=== PATIENT | female | born 1945 | race Caucasian/White ===

== ENCOUNTER 2018-07-29 10:41 | Day surgery (SDC) | payer MEDICARE, OTHER, SELFPAY ==
--- NOTE | 2018-07-28 11:55 | W.PIPPEYE ---
History of Present Illness Chief Complaint: Progressive decreased vision, right eye Narrative: The patient is a 73-year-old female with history of corneal epithelial dystrophy who presented with complaints of progressive decreased vision in both eyes at distance and intermediate. She has a history of myopia and takes her glasses off to read, which she has done so for many years. On examination she was noted to have moderate bilateral nuclear cataracts with early posterior subcapsular cataracts. She was more symptomatic in the right eye. She desired cataract surgery and attempt to improve and maximize her vision. In addition, she desires to correct the right eye for distance. She understands that she will likely be significantly anisometropic after cataract surgery. NOTE: The Chief Complaint, HPI, Past Medical History, Past Surgical History, Family History, Social History, Medications, and complete Ophthalmic Exam with detailed Assessment and Plan have already been documented in the patient's outpatient ophthalmic record and are not covered again in detail here. Meds Home Medications Medication Instructions Recorded Confirmed Type atenolol 25 mg tablet 12.5 mg PO BID 06/03/18 07/24/18 History clobetasol 0.05 % topical ointment 1 applic TP DAILY 42 Days #15 gm 06/03/18 07/24/18 Rx estradiol 10 mcg vaginal tablet 10 mcg VG DAILY 14 Days #25 tab 06/03/18 07/24/18 Rx calcium carbonate [Calcium 500] 500 mg PO DAILY 07/24/18 07/24/18 History cholecalciferol (vitamin D3) 1,000 unit PO DAILY 07/24/18 07/24/18 History [Vitamin D3] magnesium oxide 500 mg PO DAILY 07/24/18 07/24/18 History metronidazole 1 applic TOPICAL BID 07/24/18 07/24/18 History multivitamin 1 tab PO DAILY 07/24/18 07/24/18 History triamcinolone acetonide 1 applic TOPICAL BID 07/24/18 07/24/18 History Allergies Allergy/AdvReac Type Severity Reaction Status Date / Time dexamethasone [From Maxitrol] Allergy Severe Swelling/Ed Verified 07/26/18 12:13 odilon neomycin [From Maxitrol] Allergy Severe Swelling/Ed Verified 07/26/18 12:13 odilon polymyxin B [From Maxitrol] Allergy Severe Swelling/Ed Verified 07/26/18 12:13 odilon cefazolin [From Kefzol] AdvReac Intermediate Rash Verified 06/25/18 13:58 ciprofloxacin AdvReac Intermediate Tingling Verified 06/25/18 13:58 in hands and feet Penicillins AdvReac Mild Hives Verified 06/25/18 13:58 Exam OCULAR EXAM:: Visual acuity at distance: Corrected visual acuity 20/25 right eye, 20/25 left eye. Pupils: Pupils equal, round, and reactive without afferent pupillary defect IOP: 15 OD 16 OS Extraocular Motility: Normal Pertinent Slit Lamp Findings: Significant for map dot fingerprint epithelial changes. The epithelium is mildly irregular. 2+ nuclear cataracts are present OU with 1+ posterior subcapsular cataract. Dilated Funduscopic Examination: Disc cupping is 0.1 OU, slightly tilted with good color. The optic nerves have good perfusion and normal color. The retinal vasculature is normal without significant tortuosity or abnormality. The maculas are normal in appearance with normal contour and foveal reflex appropriate for age. The peripheral retina and vitreous are normal. BRIGHTNESS ACUITY TESTING (BAT):: Off right eye 20/25 Low: Right eye 20/30 Medium: Right eye 20/40 High: 20/40 Assessment and Plan (1) Nuclear sclerotic cataract of right eye: Current visit: No Status: Acute Assessment: Visually significant cataract, right eye. Plan: Cataract extraction with intraocular lens implantation, right eye (2) Posterior subcapsular age-related cataract, right eye: Current visit: No Status: Acute Assessment: Visually significant cataract, right eye. Plan: Cataract extraction with intraocular lens implantation, right eye (3) Myopia of right eye: Current visit: No Status: Chronic Assessment: Myopia, right eye Plan: Preoperative discussion was undertaken with the patient. She desires cataract surgery with intraocular lens implantation with a goal of correcting her myopia in the right eye. She understands that she will remain myopic in the left eye and she will be anisometropic. At some point in the future when cataract surgery was performed on the left eye the anisometropia can be corrected, or she may desire to remain mildly to moderately myopic in the left eye for monovision. Note: NOTE:: The details of the planned surgery, including the risks, indications,limitations,expectations,outcome and possible complications were explained to the patient. The patient understands the complications including, but not limited to: infection, hemorrhage, posterior dislocation of the lens or nuclear fragments which may require the intervention of a vitreoretinal surgeon, possible loss of the eye, or from anesthetic complications. The patient has been made aware of the option of not having surgery, that vision following surgery may not be equal to that prior to surgery, and that the planned surgery may not achieve the intended results. Following this discussion, which the patient appeared to understand, the patient wishes to proceed with cataract surgery with lens implantation of the affected eye to improve and maximize vision.
[2018-07-29 10:53] VITALS: BP 144/77; PULSE 61; RESP 16; TEMP 35.5; O2SAT 97
[2018-07-29] MEDS: Lidocaine 2% Jelly 6 ML SYR (12:29)
[2018-07-29] MEDS: Balanced Salt Soln.-PLUS 500 ML BAG (12:34)
[2018-07-29] MEDS: Lidocaine 1% Pres-Free 5 ML VIAL (12:34)
[2018-07-29] MEDS: Povidone-Iodine Ophth 30 ML BTL (12:54)
--- NOTE | 2018-07-29 12:58 | W.PM.DSUDISC ---
Discharge Plan Discharge Details Reason For Visit: CATARACT OD Attending Provider: Devan Hernandez Primary Care Provider: Nilsa Romero Home Meds and New Rx's Prescriptions: No Action atenolol 25 mg tablet 12.5 mg PO BID RF: 0 clobetasol 0.05 % ointment 1 applic TP DAILY 42 Days Qty: 15 RF: 2 estradiol [Vagifem] 10 mcg tablet 10 mcg VG DAILY 14 Days Qty: 25 RF: 4 multivitamin Tablet 1 tab PO DAILY RF: 0 metronidazole 0.75 % Cream 1 applic TOPICAL BID RF: 0 magnesium oxide 500 mg Capsule 500 mg PO DAILY RF: 0 triamcinolone acetonide 0.1 % Cream 1 applic TOPICAL BID RF: 0 calcium carbonate [Calcium 500] 500 mg calcium (1,250 mg) Tablet 500 mg PO DAILY RF: 0 cholecalciferol (vitamin D3) [Vitamin D3] 1,000 unit Capsule 1,000 unit PO DAILY RF: 0 polyethylene glycol 3350 [Miralax] 17 gram Powder In Packet 17 g PO PRNRF: 0 docusate sodium [Colace] 100 mg Capsule 100 mg PO PRNRF: 0 Discharge Instructions Stand Alone Forms: Post-op Topical Cataract, Dena Gleason (DSU) DS: Diagnosis Discharge Diagnosis (1) Nuclear sclerotic cataract of right eye: Status: Resolved (2) Posterior subcapsular age-related cataract, right eye: Status: Resolved (3) Myopia of right eye: Status: Chronic (4) Status post cataract extraction and insertion of intraocular lens of right eye: Status: Acute
--- NOTE | 2018-07-29 13:02 | W.PM.OP ---
Date of service: 07/29/18 Time of Service: 13:02 Operative Note DATE OF PROCEDURE: 07/29/18 PRE-OP DIAGNOSIS: Cataract, right eye POST-OP DIAGNOSIS: same SURGEON: Devan Hernandez ANESTHESIA: MAC and local (sub-tenon's anesthetic infiltration) PATHOLOGY: none sent COMPLICATIONS: None Patient was transported to: same day Patient's condition: stable Implants: Asa [employer]a Vision / [employer] Tecnis [id number] Indications: Progressive decreased vision due to cataract, right eye Procedure Description: CATARACT SURGERY OPERATIVE REPORT PREOPERATIVE DIAGNOSIS: Nuclear/posterior subcapsular cataract, right eye, symptomatic POSTOPERATIVE DIAGNOSIS: Same OPERATION: Cataract extraction using phacoemulsification with posterior chamber intraocular lens implant, right eye. IOL: IOL Director Of Quantitative Research/Model: [employer] Vision / TIMOTHY Tecnis ZCB00 IOL Power: + 14.5 diopters IOL Serial Number: [id number] Optic Diameter: 6.0mm Haptic/Overall Diameter: 13.0mm PHACO INFO: Stephen Zero[employer]urion Vision System with OZil and Active Fluidics Cumulative Dispersed Energy (CDE): 4.86 seconds SURGEON: Devan Hernandez MD, HYUN ANESTHESIA: Monitored Anesthesia Care (MAC), with local sub-tenon's anesthetic infiltration COMPLICATIONS: None SPECIMENS: None INDICATIONS FOR PROCEDURE: The patient is a 73-year-old lady with history of myopia who has developed asymptomatic nuclear and posterior subcapsular cataract in the right eye. She desires cataract surgery and attempt to improve and maximize her vision. In addition, she desires to have her myopia corrected with the lens implant. PROCEDURE: The correct surgical eye was identified and marked as the right eye and the pupil was dilated in the preoperative area using mydriatics, cycloplegics, and NSAIDS (except in aspirin allergic patients). The dilated pupil size was 8.0 mm. Oral sedation was administered in the form of an Imprimis MKO Melt (midazolam 3mg/ketamine 25mg/ondansetron 2mg). The patient was brought to the operating room where cardiopulmonary monitoring was instituted and surgical time-out was performed, confirming the correct operative eye and IOL power. Topical anesthesia was administered and ophthalmic povidone-iodine 5% was instilled into the conjunctival fornices. Lidocaine gel was applied to the cornea and the jeffrey-ocular area was prepped with Betadine 10% solution and draped in the usual sterile fashion for intraocular surgery. Steri-strips were used to cover the lashes and lid margins and an adhesive eye drape was placed. Care was taken to isolate the lashes and lid margins under the Steri-strips and adhesive eye drape. A lid speculum was placed between the lids of the operative eye and the Bernie-Chaparrita operating microscope was maneuvered into position. Ro scissors were then used to make a conjunctival buttonhole approximately 6mm posterior to the limbus in the inferonasal quadrant. Blunt dissection was carried out to expose bare sclera, and a blunt-tipped sub-tenon?s anesthesia cannula was introduced and passed posteriorly along the globe where non-preserved plain lidocaine was injected into posterior sub-Tenon?s space. A sideport knife was used to make a paracentesis port at the 7:00 postion and the anterior chamber was filled with Healon GV. A 2.4mm keratome knife was used to create a half-thickness groove at the limbus and then to construct a three-plane near-clear corneal tunnel extending 2.0mm into clear cornea at the 10:00 position. A flap was raised on the anterior capsule and capsulorhexis forceps were used to complete a continuous curvilinear capsulorhexis of 5.0 mm. Balanced salt solution was then used to perform cortical cleaving hydrodissection and nuclear hydrodelineation until the lens could be freely rotated within the capsular bag. The lens nucleus was then disassembled and removed within the capsular bag and iris plane using phacoemulsification. Residual cortical material was removed using the 45-degree angled silicone I/A tip with 0.3mm port. The posterior capsule was carefully polished to remove as much residual lens epithelial cells as safely possible. The capsular bag was then inflated and the anterior chamber deepened with viscoelastic. The lens implant described above was inserted into the capsular bag using the TIMOTHY Bonduel Injector. A Kuglen hook was used to dial the IOL into position. Residual viscoelastic was then removed first from posterior to the IOL, then from the anterior chamber using the I/A handpiece. The lens implant was noted to center nicely within the capsular bag. The incisions were stromally hydrated, and the anterior chamber was reformed using BSS. Then 0.4cc of moxifloxacin 1.5mg/ml were injected into the capsular bag and anterior chamber. The incisions were checked with a Weck spear and found to be secure. Several drops of ophthalmic povidone-iodine 5% were then applied to the eye followed by two drops of Imprimis combination moxifloxacin/dexamethasone solution. The drapes were removed and a clear plastic protective eye shield was placed over the eye. The patient was then returned to Same Day Surgery in stable condition.
--- NOTE | 2018-07-29 13:07 | ROE_ITS ---
Date of service: 07/29/18 Time of Service: 13:02 Operative Note DATE OF PROCEDURE: 07/29/18 PRE-OP DIAGNOSIS: Cataract, right eye POST-OP DIAGNOSIS: same SURGEON: Devan Hernandez ANESTHESIA: MAC and local (sub-tenon's anesthetic infiltration) PATHOLOGY: none sent COMPLICATIONS: None Patient was transported to: same day Patient's condition: stable Implants: Asa and [employer]a Vision / [employer] Opt[employer] Tecnis [id number] Indications: Progressive decreased vision due to cataract, right eye Procedure Description: CATARACT SURGERY OPERATIVE REPORT PREOPERATIVE DIAGNOSIS: Nuclear/posterior subcapsular cataract, right eye, symptomatic POSTOPERATIVE DIAGNOSIS: Same OPERATION: Cataract extraction using phacoemulsification with posterior chamber intraocular lens implant, right eye. IOL: IOL Property Adjuster/Model: J[employer]J Vision / TIMOTHY Tecnis ZCB00 IOL Power: + 14.5 diopters IOL Serial Number: [id number] Optic Diameter: 6.0mm Haptic/Overall Diameter: 13.0mm PHACO INFO: Stephen [employer] Stixurion Vision System with OZil and Active Fluidics Cumulative Dispersed Energy (CDE): 4.86 seconds SURGEON: Devan Hernandez MD, HYUN ANESTHESIA: Monitored Anesthesia Care (MAC), with local sub-tenon's anesthetic infiltration COMPLICATIONS: None SPECIMENS: None INDICATIONS FOR PROCEDURE: The patient is a 73-year-old lady with history of myopia who has developed asymptomatic nuclear and posterior subcapsular cataract in the right eye. She desires cataract surgery and attempt to improve and maximize her vision. In addition, she desires to have her myopia corrected with the lens implant. PROCEDURE: The correct surgical eye was identified and marked as the right eye and the pupil was dilated in the preoperative area using mydriatics, cycloplegics, and NSAIDS (except in aspirin allergic patients). The dilated pupil size was 8.0 mm. Oral sedation was administered in the form of an Imprimis MKO Melt (midazolam 3mg/ketamine 25mg/ondansetron 2mg). The patient was brought to the operating room where cardiopulmonary monitoring was instituted and surgical time-out was performed, confirming the correct operative eye and IOL power. Topical anesthesia was administered and ophthalmic povidone-iodine 5% was instilled into the conjunctival fornices. Lidocaine gel was applied to the cornea and the jeffrey-ocular area was prepped with Betadine 10% solution and draped in the usual sterile fashion for intraocular surgery. Steri-strips were used to cover the lashes and lid margins and an adhesive eye drape was placed. Care was taken to isolate the lashes and lid margins under the Steri-strips and adhesive eye drape. A lid speculum was placed between the lids of the operative eye and the Bernie-Chaparrita operating microscope was maneuvered into position. Ro scissors were then used to make a conjunctival buttonhole approximately 6mm posterior to the limbus in the inferonasal quadrant. Blunt dissection was carried out to expose bare sclera, and a blunt-tipped sub-tenon? s anesthesia cannula was introduced and passed posteriorly along the globe where non-preserved plain lidocaine was injected into posterior sub-Tenon?s space. A sideport knife was used to make a paracentesis port at the 7:00 postion and the anterior chamber was filled with Healon GV. A 2.4mm keratome knife was used to create a half-thickness groove at the limbus and then to construct a three-plane near-clear corneal tunnel extending 2.0mm into clear cornea at the 10:00 position. A flap was raised on the anterior capsule and capsulorhexis forceps were used to complete a continuous curvilinear capsulorhexis of 5.0 mm. Balanced salt solution was then used to perform cortical cleaving hydrodissection and nuclear hydrodelineation until the lens could be freely rotated within the capsular bag. The lens nucleus was then disassembled and removed within the capsular bag and iris plane using phacoemulsification. Residual cortical material was removed using the 45-degree angled silicone I/A tip with 0.3mm port. The posterior capsule was carefully polished to remove as much residual lens epithelial cells as safely possible. The capsular bag was then inflated and the anterior chamber deepened with viscoelastic. The lens implant described above was inserted into the capsular bag using the TIMOTHY [place] Injector. A Kuglen hook was used to dial the IOL into position. Residual viscoelastic was then removed first from posterior to the IOL, then from the anterior chamber using the I/A handpiece. The lens implant was noted to center nicely within the capsular bag. The incisions were stromally hydrated , and the anterior chamber was reformed using BSS. Then 0.4cc of moxifloxacin 1.5mg/ml were injected into the capsular bag and anterior chamber. The incisions were checked with a Weck spear and found to be secure. Several drops of ophthalmic povidone-iodine 5% were then applied to the eye followed by two drops of Imprimis combination moxifloxacin/dexamethasone solution. The drapes were removed and a clear plastic protective eye shield was placed over the eye. The patient was then returned to Same Day Surgery in stable condition.
[2018-07-29 13:31] VITALS: BP 106/66; PULSE 60; RESP 17; TEMP 37.6; O2SAT 98
== END 2018-07-29 13:26 | disposition home or self-care (01) ==
LOC: SUR 10:43
PROVIDERS: PCP Nurse Practitioner; Visit Provider Ophthalmology
PROC: (CPT 66984; principal; 2018-07-29 13:30)
DX: H25.811 Combined forms of age-related cataract, right eye (principal); E11.9 Type 2 diabetes mellitus without complications; G47.33 Obstructive sleep apnea (adult) (pediatric); I10 Essential (primary) hypertension; K21.9 Gastro-esophageal reflux disease without esophagitis
CPT/HCPCS: 66984; V2632

== ENCOUNTER 2018-11-14 00:16 | Outpatient (CLI) | payer MEDICARE, OTHER, SELFPAY ==
--- NOTE | 2018-11-14 15:00 | DI.RAD_ITS ---
SYMPTOMS/DIAGNOSIS: OSTEOPENIA, M85.88 DEXA SCAN: Routine examination. The lateral spine shows no compression deformities. Evaluation of the left hip shows a total T score of -0.1and a Z score of 1.4. This compares with a total T score of 1.0 from 2012. This is within normal limits. Evaluation of the lumbar spine shows a total T score of -1.7 and a Z score of 0.6. This compares with a total T score of -1.2 from 2012. This is consistent with osteopenia and an increased fracture risk. There is no evidence of osteoporosis. IMPRESSION: Osteopenia in the lumbar spine.
== END 2018-11-14 00:36 ==
PROVIDERS: PCP Internal Medicine; Visit Provider Internal Medicine
DX: M85.88 Other specified disorders of bone density and structure, other site (principal)
CPT/HCPCS: 77080

== ENCOUNTER 2019-07-18 00:38 | Outpatient (CLI) | payer MEDICARE, OTHER, SELFPAY ==
--- NOTE | 2019-07-18 13:00 | DI.MAMMO_ITS ---
EXAM: MAMMO SCREENING CLINICAL HISTORY: screening TECHNIQUE: Mammograms were interpreted according to the usual protocol including computer analysis w [employer] CAD system, tomosynthesis and C-view imaging. COMPARISON: Current examination is compared with previous examinations including August 2017 FINDINGS: Breasts are of moderate density with fairly symmetrical distribution of fibroglandular tissue. No do minant mass or clumped microcalcification is identified in either breast. Current examination is com pared with previous examinations including August 2017 and there has been no gross interval change in appearance in comparison with the previous studies. IMPRESSION: No specific evidence of malignancy at this time. Routine screening examinations are suggested at year ly intervals due to the family history of breast carcinoma. Category 1, breast density category B. BI-RADS Cat 1 - Negative Breast Density - Category B - Scattered areas of fibroglandular density
== END 2019-07-18 00:58 ==
PROVIDERS: PCP Nurse Practitioner; Visit Provider Nurse Practitioner Family
DX: Z12.31 Encounter for screening mammogram for malignant neoplasm of breast (principal); Z80.3 Family history of malignant neoplasm of breast
CPT/HCPCS: 77063; 77067

== ENCOUNTER 2019-11-21 02:08 | Outpatient (CLI) | payer MEDICARE, OTHER, SELFPAY ==
--- NOTE | 2019-11-24 13:30 | W.HOLTRPT ---
Date of service: 11/24/19 Time of Service: 13:30 Holter Monitor Report Holter Monitor Note: This is a 48-hour Holter monitor ordered for the indication of palpitations. ?The patient was in normal sinus rhythm for the majority of the recording. ?There were 4 episodes of supraventricular tachycardia with the longest lasting 9 beats. There were rare (less than 1%) premature atrial contractions. ?There were zero episodes of ventricular tachycardia and rare (0.2%) single ventricular ectopic beats. ?There were no episodes of atrial fibrillation and no pauses greater than 3 seconds and no evidence of high degree heart block. ?Patient's diary events were associated with a PVC, PACs, and a 4 beat run of SVT.
== END 2019-11-21 02:28 ==
PROVIDERS: PCP Nurse Practitioner; Visit Provider Internal Medicine
DX: R00.2 Palpitations (principal); I47.1 Supraventricular tachycardia; I49.1 Atrial premature depolarization; I49.3 Ventricular premature depolarization
CPT/HCPCS: 93225

== ENCOUNTER 2019-11-24 10:43 | Outpatient (CLI) | payer MEDICARE, OTHER, SELFPAY | END 2019-11-24 11:03 | PROVIDERS: PCP Nurse Practitioner; Visit Provider Internal Medicine | DX: R00.2 Palpitations (principal); I47.1 Supraventricular tachycardia; I49.1 Atrial premature depolarization; I49.3 Ventricular premature depolarization | CPT/HCPCS: 93227; 94060; 94726; 94729; 93226 ==

== ENCOUNTER 2019-11-24 13:30 | Outpatient (CLI) | payer MEDICARE, OTHER, SELFPAY | END 2019-11-24 13:50 | PROVIDERS: PCP Nurse Practitioner; Referring Provider Nurse Practitioner; Visit Provider Internal Medicine Cardiovascular Disease | DX: R00.2 Palpitations (principal); I47.1 Supraventricular tachycardia; I49.1 Atrial premature depolarization; I49.3 Ventricular premature depolarization ==

== ENCOUNTER 2020-05-10 02:23 | Outpatient (CLI) | payer MEDICARE, OTHER, SELFPAY ==
[2020-05-10 10:11] LABS: Abs Immature Grans 0.01 10^3/uL (0.0-0.06); Absolute Basophil Count 0.02 10^3/uL (0.0-0.2); Absolute Monocyte Count 0.38 10^3/uL (0.1-0.8); Basophils % 0.5; Eosinophils % 2.5; HCT 39.3 % (36.0-46.0); HGB 12.9 g/dL (11.2-15.7); Immature Grans % 0.2; Lymphocytes % 34.9; MCH 31.7 pg (27.0-33.0); MCHC 32.8 % (32.0-36.0); MCV 96.6 fL (80-95); MPV 9.4 fL (8.0-11.0); Monocytes % 9.5; Neutrophils % 52.4; Nucleated RBC 0 %; Platelet Count 189 10^3/uL (130-400); RBC 4.07 10^6/uL (3.93-5.22); RDW 12.8 % (11.7-14.6); RDW-SD 45.3 fL; WBC 4.01 10^3/uL (4.4-10.8)
[2020-05-10 11:11] LABS: Iron 126 ug/dL (50-170)
[2020-05-10 11:36] LABS: Vitamin D 25 Total 73.9 ng/ml (30-100)
[2020-05-10 11:38] LABS: ALT 29 U/L (14-59); AST 23 U/L (15-37); Albumin 3.4 g/dL (3.4-5.0); Alkaline Phosphatase 77 U/L (46-116); BUN 21 mg/dL (7-18); Bilirubin, Total 0.5 mg/dL (0.2-1.0); CREATININE 0.61 mg/dL (0.55-1.02); Calcium 9.6 mg/dL (8.5-10.1); Chloride 105 mmol/L (98-107); Ferritin 39 ng/mL (8-252); Glucose 67 mg/dL (74-106); Potassium 4.1 mmol/L (3.5-5.1); Sodium 143 mmol/L (136-145); Total Protein 6.2 g/dL (6.4-8.2)
[2020-05-10 11:40] LABS: Folate > 20.0 ng/mL (8.6-20.0); Vitamin B12 > 2000 pg/mL (193-986)
[2020-05-13 13:56] LABS: Thiamine (Vitamin B1), WB 160 nmol/L (70-180)
== END 2020-05-10 02:43 ==
PROVIDERS: PCP Internal Medicine; Visit Provider Nurse Practitioner Family
DX: Z98.84 Bariatric surgery status (principal); E11.9 Type 2 diabetes mellitus without complications; E55.9 Vitamin D deficiency, unspecified; I47.1 Supraventricular tachycardia
CPT/HCPCS: 36415; 80053; 82306; 82607; 82728; 82746; 83540; 84425; 85025

== ENCOUNTER 2020-06-09 13:36 | Outpatient (REF) | payer MEDICARE, OTHER, SELFPAY ==
[2020-06-12 08:37] LABS: Patient Race White; SARS-CoV-2 RNA Undetected (Undetected); SARS-CoV-2 Specimen Source Nasal
== END 2020-06-09 13:56 ==
LOC: NCHCN 13:36
PROVIDERS: PCP Internal Medicine; Visit Provider Internal Medicine
DX: Z20.828 Contact with and (suspected) exposure to other viral communicable diseases (principal)
CPT/HCPCS: U0003

== ENCOUNTER 2020-08-17 01:41 | Outpatient (CLI) | payer MEDICARE, OTHER, SELFPAY ==
--- NOTE | 2020-08-17 | DI.MAMMO_ITS ---
EXAM: MAMMO SCREENING CLINICAL HISTORY: SCREENING, Z12.31 TECHNIQUE: Mammograms were interpreted according to the usual protocol including computer analysis w [employer] CAD system, tomosynthesis and C-view imaging. COMPARISON: 2010 through 2018 FINDINGS: The breasts are composed of mainly fatty density , Breast Density category A. No suspicious masses or suspicious microcalcifications are seen. No skin thickening or abnormal axillary lymph nodes are seen. There has been no significant change from prior exams. IMPRESSION: BI-RADS Category 1, Negative mammogram Yearly screening mammography is recommended. Breast Density - Category A, fatty density. A negative radiographic report should not delay biopsy if a dominant or clinically suspicious mass is present. Up to ten percent of cancers are not identified on mammography. A negative report may reinforce clinical impression. Adenosis and dense breasts may obscure an underlying neoplasm. False positive reports average 6 to 10%. Patient will receive a letter notifying them of these results.
== END 2020-08-17 02:01 ==
PROVIDERS: PCP Internal Medicine; Visit Provider Internal Medicine
DX: Z12.31 Encounter for screening mammogram for malignant neoplasm of breast (principal)
CPT/HCPCS: 77063; 77067

== ENCOUNTER 2021-03-29 03:14 | Outpatient (CLI) | payer MEDICARE, OTHER, SELFPAY ==
--- NOTE | 2021-03-29 | DI.DEXA_ITS ---
Exam(s) XR DEXA BONE DENSITY W/WO LNIDSEY EXAM: XR DEXA BONE DENSITY W/WO LINDSEY CLINICAL HISTORY: DISORDER OF BONE DENSIT AND STRUCTURE, M85.88 TECHNIQUE: COMPARISON: Comparison examination is 11/14/2018. FINDINGS: Lateral Spine Image: Unremarkable. No compression deformities identified. Left hip: Total T-Score: -0.4. This compares to -0.1 on the prior examination. Total Z-Score: 1.4 T- and Z-scores: Within normal limits. Lumbar Spine: Total T-Score: -1.4. This compares with -1.7 on the prior examination. Total Z-Score: 1.0 T- and Z-scores: Findings consistent with osteopenia. IMPRESSION: Osteopenia in the lumbar spine.
== END 2021-03-29 03:34 ==
PROVIDERS: PCP Internal Medicine; Visit Provider Internal Medicine
DX: M85.88 Other specified disorders of bone density and structure, other site (principal)
CPT/HCPCS: 77080

== ENCOUNTER 2021-05-31 16:11 | Outpatient (REF) | payer MEDICARE, OTHER, SELFPAY ==
[2021-05-31 20:52] LABS: Anion Gap 4.2 mmol/L (3-11); BUN 19 mg/dL (7-18); CO2 32.8 mmol/L (21.0-32.0); CREATININE 0.7 mg/dL (0.55-1.02); Calcium 9.4 mg/dL (8.5-10.1); Chloride 104 mmol/L (98-107); Glucose 91 mg/dL (74-106); Potassium 3.9 mmol/L (3.5-5.1); Sodium 141 mmol/L (136-145)
== END 2021-05-31 16:12 | disposition home or self-care (01) ==
LOC: NCHCN 16:11
PROVIDERS: PCP Internal Medicine; Visit Provider Family Medicine
DX: I10 Essential (primary) hypertension (principal)
CPT/HCPCS: 80048

== ENCOUNTER 2021-09-13 14:05 | Outpatient (REF) | payer MEDICARE, OTHER, SELFPAY ==
[2021-09-13 15:12] LABS: Anion Gap 5.8 mmol/L (3-11); BUN 20 mg/dL (7-18); CO2 33.2 mmol/L (21.0-32.0); CREATININE 0.5 mg/dL (0.55-1.02); Calcium 9.5 mg/dL (8.5-10.1); Chloride 104 mmol/L (98-107); Glucose 91 mg/dL (74-106); Potassium 4.2 mmol/L (3.5-5.1); Sodium 143 mmol/L (136-145)
== END 2021-09-13 14:06 | disposition home or self-care (01) ==
LOC: NCHCN 14:05
PROVIDERS: PCP Internal Medicine; Visit Provider Family Medicine
DX: I10 Essential (primary) hypertension (principal)
CPT/HCPCS: 80048

== ENCOUNTER 2021-10-31 11:02 | Emergency (ER) | payer MEDICARE, OTHER, SELFPAY ==
[2021-10-31 11:07] VITALS: BP 162/88; PULSE 76; RESP 16; O2SAT 99
--- NOTE | 2021-10-31 11:15 | DI.RAD_ITS ---
Exam(s) XR FOOT LT COMPLETE EXAM: XR FOOT LT COMPLETE CLINICAL HISTORY: fall/twist last night. TECHNIQUE: 2D digital imaging was performed. COMPARISON: No exams were available for comparison FINDINGS: There is no evidence of fracture nor diastasis of the Xiomara arelis joint. No osseous lesions nor erosio ns no degenerative changes. Incidentally noted are multiple calcifications within a thickened Achilles tendon consistent with chr onic tendinitis-type findings. IMPRESSION: No fractures. Calcific Achilles tendinosis DATA REPOSITORY: RADIATION DOSE DELIVERED:
--- NOTE | 2021-10-31 11:57 | ED.GENADUL_ITS ---
Discharge Plan Disposition Patient Disposition: HOME Condition: Stable Discharge Details Clinical Impression: Foot pain, left Primary Care Provider: Tonio Mckee ED Provider: Radu Delgado Home Meds and New Rx's Prescriptions: Continued atenolol 25 mg tablet 12.5 mg PO BID RF: 0 multivitamin with iron [Daily Multiple Vitamins/Iron] Tablet 1 tab PO DAILY RF: 0 clobetasol 0.05 % ointment 1 applic TP .COMPLEX 42 Days Qty: 15 RF: 2 estradiol [Vagifem] 10 mcg tablet 10 mcg VG .twice weekly Qty: 24 RF: 2 magnesium oxide 500 mg Capsule 500 mg PO DAILY RF: 0 cholecalciferol (vitamin D3) [Vitamin D3] 1,000 unit Capsule 1,000 unit PO DAILY RF: 0 polyethylene glycol 3350 [Miralax] 17 gram Powder In Packet 17 g PO HS RF: 0 docusate sodium [Colace] 100 mg Capsule 100 mg PO QDAY PRNRF: 0 pantoprazole [Protonix] 20 mg Tablet,Delayed Release (Dr/Ec) 20 mg PO QDAY RF: 0 Discharge Instructions Instructions: Foot Sprain (ED) Additional Instructions: X-ray is unremarkable. Wear short walking boot as needed, and use crutches as needed, advance activity as tolerated. Rest, elevate, cool compresses every 2 hours for 20 minutes. Please watch for new or worsening symptoms and return to the ER for any concerns. Lastly, please contact your orthopedic group later today or tomorrow to discuss your ER visit and need for outpatient reevaluation Medical Decision Making 76-year-old female reports a history of plantar fasciitis, because of this she tried putting orthotics into her slippers last night which eventually made her fall. She twisted her left foot denies any other injury or any symptoms prior to the fall. She recently had a shoulder surgery and therefore using crutches is difficult but she is able to do so. Will obtain x-ray of her foot and reassess X-ray is unremarkable. Discussed x-ray findings with patient. She is followed by the [place] [facility]. Plan is to place her into a short walking boot, she already has crutches, and she will follow up with her orthopedic team. Standard discharge and return precautions provided. This documentation was generated using [employer] system, please disregard any oddities of phrase or misspellings. Medical Records Medical records reviewed: Yes I reviewed the patient's medical records. Imaging Data Radiologic Study: Attestation: I personally reviewed and interpreted this imaging study as follows: Imaging: X-Ray Radiologist's impression: Exam(s) XR FOOT LT COMPLETE EXAM: XR FOOT LT COMPLETE CLINICAL HISTORY: fall/twist last night. TECHNIQUE: 2D digital imaging was performed. COMPARISON: No exams were available for comparison FINDINGS: There is no evidence of fracture nor diastasis of the Xiomara arelis joint. No osseous lesions nor erosions no degenerative changes. Incidentally noted are multiple calcifications within a thickened Achilles tendon consistent with chronic tendinitis-type findings. IMPRESSION: No fractures. Calcific Achilles tendinosis HPI General Mode of arrival: ambulatory . Date/Time Provider Initiated Documentation: 10/31/21 11:16 . Limitations to Documentation: no limitations . Information obtained by: patient . History of Present Illness 76 year old F presents to the emergency department with the chief complaint of L foot injury, described as moderate, with intensity rated at 5. Quality is described as aching, and is localized to the left and lower extremity. Patient reports no radiation. Patient started experiencing this day(s) (1) and it has been constant. No relieving factors improve symptom(s), Movement worsens symptoms . Patient notes no other symptoms.. Patient did receive the following treatments prior to arrival, other (crutches) Related Data Home Medications Medication Instructions Recorded Confirmed atenolol 25 mg tablet 12.5 mg PO BID 06/03/18 10/31/21 cholecalciferol (vitamin D3) 1,000 unit PO DAILY 07/24/18 10/31/21 [Vitamin D3] magnesium oxide 500 mg PO DAILY 07/24/18 10/31/21 docusate sodium [Colace] 100 mg PO QDAY PRN 07/29/18 10/31/21 polyethylene glycol 3350 [Miralax] 17 g PO HS 07/29/18 10/31/21 clobetasol 0.05 % topical ointment 1 applic TP .COMPLEX 42 Days #15 gm 06/02/19 10/31/21 multivitamin with iron 1 tab PO DAILY 06/02/19 10/31/21 estradiol 10 mcg vaginal tablet 10 mcg VG .twice weekly #24 tab 11/11/20 10/31/21 pantoprazole [Protonix] 20 mg PO QDAY 10/31/21 10/31/21 Previous Rx's Medication Instructions Recorded clobetasol 0.05 % topical ointment 1 applic TP .COMPLEX 42 Days #15 gm 06/02/19 estradiol 10 mcg vaginal tablet 10 mcg VG .twice weekly #24 tab 11/11/20 Allergies Allergy/AdvReac Type Severity Reaction Status Date / Time dexamethasone [From Maxitrol] Allergy Severe Swelling/Ed Verified 10/31/21 11:20 odilon neomycin [From Maxitrol] Allergy Severe Swelling/Ed Verified 10/31/21 11:20 odilon polymyxin B [From Maxitrol] Allergy Severe Swelling/Ed Verified 10/31/21 11:20 odilon quinine Allergy Intermediate Other (See Verified 10/31/21 11:20 Comment) cefazolin [From Kefzol] AdvReac Intermediate Rash Verified 10/31/21 11:20 ciprofloxacin AdvReac Intermediate Tingling Verified 10/31/21 11:20 in hands and feet Penicillins AdvReac Mild Hives Verified 10/31/21 11:20 General Stated Complaint: Orthopedic CAMERON: 3 Review of Systems Constitutional Constitutional: Denies headache(s) and Denies weakness ENT Ears, Nose, Mouth, and Throat: Denies headache(s) Cardiovascular Cardiovascular: Denies chest pain and Denies dyspnea Respiratory Respiratory: Denies dyspnea Musculoskeletal Musculoskeletal: Denies deformity, Denies arthralgias, Denies numbness, Reports stiffness and Denies tingling Integumentary/Breasts Skin/Breast: Denies erythema Neurologic Neurologic: Denies headache(s), Denies numbness, Denies tingling and Denies weakness PFSH All Active Problems Foot pain, left (Acute) Status post cataract extraction and insertion of intraocular lens of right eye (Acute) Myopia of right eye (Chronic) Myopia of left eye (Chronic) Nuclear sclerotic cataract of left eye (Acute) Posterior subcapsular age-related cataract of left eye (Acute) Corneal epithelial dystrophy (Chronic) Vaginal atrophy (Chronic) Vagifem tabs - 1 in vagina at HS daily for 2 weeks then 2-3 times per week Lichen sclerosus (Acute) Clobetasol 0.05% oint to vulva at HS daily for 6 weeks then weekly for 6 weeks F/U here in 3 weeks Medical History Nuclear sclerotic cataract of right eye Posterior subcapsular age-related cataract, right eye Social History Smoking/Tobacco Use Status: Never Smoking risk assessment performed?: Yes Alcohol Intake: never Drug use: Never Substance use type: does not use Do you feel safe at home: Yes Do you feel safe in your relationship?: Yes Female Reproductive History Menstrual Menopause type: natural History History 2 Para Hx # Term Pregnancies Multiple births Hx # Pregnancies Ectopic pregnancies AB induced Hx Number of Living Children AB spontaneous Exam Const General: cooperative, healthy appearing, comfortable and no acute distress Orientation: alert and awake HENMT Head: normal to inspection, normocephalic and atraumatic Eyes General: appearance normal, both eyes and all related structures Conjunctivae: conjunctivae normal Neck Neck: normal visual inspection, trachea midline and supple Resp Effort & Inspection: normal respiratory effort and able to speak in complete sentences Auscultation: clear to auscultation bilaterally Cardio Rate: regular rate Rhythm: regular rhythm Skin General skin exam: no rashes or lesions noted Neuro General: patient alert, patient awake, moves all extremities and no focal motor deficits Cognition: normal cognition Speech: speech normal Gait: antalgic and gait assisted Method: crutches Sensory Exam: no sensory deficits noted Extrem General: full ROM and capillary refill normal Ankle/foot/toe images: 1. Diffuse mild discomfort. There is no bony point tenderness. Minimal swelling and ecchymosis. Skin is intact. Normal capillary refill and dorsalis pedal pulse. Neuro, vascular, tendon intact Psych Appearance: grossly normal Mental Status: mental status grossly normal Course Vital Signs Vital signs: Vital Signs Pulse 76 10/31/21 11:07 Respiratory Rate 16 10/31/21 11:07 Blood Pressure 162/88 H 10/31/21 11:07 Pulse Oximetry 99 10/31/21 11:07 Temperature Source Temporal Artery Scan 10/31/21 11:07 Pulse 76 10/31/21 11:07 Respiratory Rate 16 10/31/21 11:07 Respiratory Effort Non-Labored 10/31/21 11:15 Blood Pressure 162/88 H 10/31/21 11:07 Blood Pressure Position Sitting 10/31/21 11:07 Pulse Oximetry 99 10/31/21 11:07 Oxygen Delivery Method Room Air 10/31/21 11:07 Oxygen Flow Rate 0 10/31/21 11:07 Pain Level 2 10/31/21 11:17 Comment 10/31/21 11:07
== END 2021-10-31 12:34 | disposition home or self-care (01) ==
PROVIDERS: Emergency Provider Physician Assistant; PCP Family Medicine
DX: M79.672 Pain in left foot (principal); X50.1XXA Overexertion from prolonged static or awkward postures, initial encounter
CPT/HCPCS: 29515; 99283; 73630

== ENCOUNTER 2021-12-29 01:21 | Outpatient (CLI) | payer MEDICARE, OTHER, SELFPAY ==
--- NOTE | 2021-12-29 11:00 | DI.MAMMO_ITS ---
Exam(s) MAMMO SCREENING EXAM: MAMMO SCREENING CLINICAL HISTORY: screening TECHNIQUE: Bilateral full field digital CC and MLO mammographic images were obtained with 3D tomosyn thesis and utilizing computer aided detection (CAD). COMPARISON: Available for comparison. FINDINGS: Masses/Architectural Distortion: None seen. Microcalcifications: No suspicious pleomorphic-type are seen. Skin Thickening/Nipple Retraction: None. IMPRESSION: 1. No significant interval change with no specific features of malignancy noted. 2. Unless there is more urgent need, screening mammography is recommended, as per [employer] guidelines. BI-RADS Category 1 - Negative Breast Density - Category A - Almost entirely fatty Breast density category C or D implies that the patient has dense breast tissue. Dense breast tissue is very common and is not abnormal but dense breast tissue can make it harder to find cancer on a ma mmogram. Also, dense breast tissue may increase their breast cancer risk. This information about the result of the mammogram report was provided to the patient to raise their awareness. Use this report when you speak with the patient about their risks for breast cancer, which includes their family hist ory. At that time, you may recommend for more screening tests (Ultrasound or MRI) as they might be us eful based on their risk. A negative radiographic report should not delay biopsy if a dominant or clinically suspicious mass is present. Up to ten percent of cancers are not identified on mammography. A negative report may reinforce clinical impression. Adenosis and dense breasts may obscure an underlying neoplasm. False positive reports average 6 to 10%. Patient will receive a letter notifying them of these results.
== END 2021-12-29 01:41 ==
PROVIDERS: PCP Family Medicine; Visit Provider Nurse Practitioner Family
DX: Z12.31 Encounter for screening mammogram for malignant neoplasm of breast (principal)
CPT/HCPCS: 77063; 77067

== ENCOUNTER 2022-08-09 18:17 | Outpatient (REF) | payer MEDICARE, OTHER, SELFPAY ==
[2022-08-09 17:20] LABS: Bacteria Negative HPF (Negative); C & S Indicated? C&S Done As Ordered; Casts Negative LPF (Negative); Crystals Negative HPF (Negative); Epithelial Cells Rare HPF (Negative); Mucus Negative (Negative); RBC Negative HPF (0-2); WBC 0-2 HPF (0-5)
== END 2022-08-09 18:18 | disposition home or self-care (01) ==
LOC: LBN 18:17
PROVIDERS: PCP Family Medicine; Visit Provider Physician Assistant Medical
DX: R30.0 Dysuria (principal); R82.998 Other abnormal findings in urine
CPT/HCPCS: 81015; 87086; 87480; 87510; 87660

== ENCOUNTER → 2023-03-12 14:10 | Outpatient (BNVA) | payer MEDICARE, OTHER, SELFPAY | PROVIDERS: PCP Family Medicine; Referring Provider Family Medicine; Visit Provider Surgery | DX: Z12.11 Encounter for screening for malignant neoplasm of colon (principal); Z86.010 Personal history of colon polyps | CPT/HCPCS: 99243 ==

== ENCOUNTER 2023-03-30 06:46 | Day surgery (SDC) | payer MEDICARE, SELFPAY ==
--- NOTE | 2023-03-29 20:37 | PDOC.DSDIS_ITS ---
Date of service: 03/30/23 Time of Service: 09:12 Discharge Plan Disposition Patient Disposition: Home Condition: Good Discharge Details Reason For Visit: EGD and colonoscopy Attending Provider: García Murry Primary Care Provider: Tonio Mckee Home Meds and New Rx's Prescriptions: Continued atenolol 25 mg tablet 25 mg PO HS multivitamin with iron [Daily Multiple Vitamins/Iron] Tablet 1 tab PO DAILY Monovisc 88 mg/4 mL syringe intra-articular estradiol [Vagifem] 10 mcg tablet 10 mcg VG .twice weekly Qty: 24 4RF Rx Instructions: use one tab in vagina twice weekly clobetasol 0.05 % ointment 1 applic TP .COMPLEX 42 Days Qty: 15 2RF Rx Instructions: 1 applic TP at bedtime once a week clindamycin HCl 300 mg capsule 600 mg PO ONCE Rx Instructions: take 2 caps 1 hour prior to procedure cyanocobalamin (vitamin B-12) 1,000 mcg capsule 1,000 mcg PO DAILY triamcinolone acetonide 0.1 % cream 1 applic topical BID PRN magnesium oxide 500 mg Capsule 500 mg PO DAILY cholecalciferol (vitamin D3) [Vitamin D3] 1,000 unit Capsule 1,000 unit PO DAILY docusate sodium [Colace] 100 mg Capsule 100 mg PO QDAY PRN omeprazole 20 mg capsule,delayed release(DR/EC) 20 mg PO HS Patient Comments: TAKE ONE CAPSULE BY MOUTH EVERY DAY Discontinued polyethylene glycol 3350 17 gram/dose powder 238 g PO ONCE Qty: 238 0RF Rx Instructions: take per colonoscopy instructions bisacodyl [Dulcolax (bisacodyl)] 5 mg tablet,delayed release (DR/EC) 5 mg PO ONCE Qty: 4 0RF Rx Instructions: take per colonoscopy instructions polyethylene glycol 3350 [Miralax] 17 gram Powder In Packet 17 g PO HS Discharge Instructions Instructions: Diverticulosis (GEN), Diverticulosis Diet (GEN) Additional Instructions: Layla, we were able to complete your endoscopies today without any difficulty. Your upper endoscopy looks very good. I do not see any evidence of stricture. You do have a small turn at the bottom part of your esophagus where it connects to your stomach. 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 It is not dangerous. Fortunately however, there is no easy fix to relieve any type of discomfort associated with swallowing. I would encourage you to lubricate pills, and use crushable medications if possible. Consuming them with lots of fluid to help rinse down will also be helpful. The actual connection of your GE junction looks very healthy. There was really minimal irregularity here. To be totally safe I did perform some biopsies in the area. Your gastric pouch looks healthy, and I do not see any signs of ulceration. The connection to the small bowel looks great. Your colonoscopy also went very smoothly. The quality of your prep was outstanding. I did not see any signs of tumors or polyps anywhere in the large intestine. Incidentally, you do have some diverticulosis. These are small weak spots in the colon wall that many patients accumulate with age. Avoiding constipation with a fiber rich diet, and staying well-hydrated are the best strategies to minimize complications. The most common complication of diverticulosis is diverticulitis, which is inflammation and infection of these pockets. This typically experienced as pain in the left lower abdomen, and is usually treated with antibiotics. I have attached some information here regarding general management of diverticulosis. 1. If tolerated, consume a soft, low fiber diet for 1-2 days. 2[address] Do not drive, drink alcohol, operate machinery, make critical decisions, or do activities that require coordination or balance for 24 hours. 3. Because air was put into your colon during the procedure, expelling air from your rectum (passing gas or farting) is normal. 4. You may not have a bowel movement for 1-3 days because of the colonoscopy prep. This is normal. 5. You may experience a sore throat for 24 to 48 hours. You may use throat lozenges or gargle with warm salt water to relieve the discomfort. 6. Because air was put into your stomach during the procedure, you may experience some belching. 7. Go directly to the emergency room if you notice any of the following: Develop chills (warm to touch), or if you have a thermometer and your temperature is above 101 Difficulty breathing or difficultly swallowing Persistent vomiting Severe abdominal pain, other than gas cramps Severe chest pain Black, tarry stools Any bleeding ? exceeding one tablespoon 8. Call your physician if the site where your intravenous was started becomes red, swollen, painful, and warm to touch. 9. Your physician has reviewed your pre-procedure medications. Please continue to take those medications as previously ordered. You will be given specific information/education regarding any changes to your medications before leaving. Activity:: Activity as Tolerated Diet:: As Tolerated Discharge Orders Discharge Orders: Discharge Order (Routine); Ordered 03/29/23 Ordered By: García Murry DS: Diagnosis Discharge Diagnosis (1) Colon cancer screening: Status: Acute Asessment and Plan: Negative screening colonoscopy, incidental diverticulosis
--- NOTE | 2023-03-29 20:41 | W.PM.ENDDOP ---
Date of service: 03/30/23 Time of Service: 09:17 Endoscopy Report DATE OF PROCEDURE: 03/30/23 PRE-OP DIAGNOSIS: Dysphagia and screening colonoscopy POST-OP DIAGNOSIS: other (Normal EGD, diverticulosis, otherwise negative screening colonoscopy) PROCEDURE: EGD with biopsies and colonoscopy SURGEON: García Murry ANESTHESIA TYPE: General:No Airway ESTIMATED BLOOD LOSS: 10 PATHOLOGY: other (Biopsies of GE junction) COMPLICATIONS: None DISPOSITION: same day INDICATIONS: Adelina is 77 years old with dysphagia and need for a screening colonoscopy. PREP: Miralax/Dulcolax PROCEDURE START TIME: 08:24 PROCEDURE END TIME: 08:52 COLONOSCOPY RETRACTION TIME: 11 FINDINGS: Normal EGD; negative screening colonoscopy with diverticulosis PROCEDURE DESCRIPTION: After the induction of anesthesia, and the assistance of a bite-block, I advanced the endoscope down the hypopharynx into the esophagus proper. Under direct visualization of the scope, I passed down the esophagus into the old gastric pouch. Esophagus appeared normal along its length to me. The gastric pouch was healthy appearing. I did not see any signs of ulceration, inflammation, or irritation anywhere along the pouch. I did advance slightly past the gastrojejunal anastomosis into the gastric limb. This also appeared normal and healthy. I then brought the camera back into the gastric pouch to the level of the GE junction. This was 35 cm from the incisors. The Z-line was fairly regular appearing. Based on her history, I did perform some biopsies in all 4 quadrants of the GE junction. I then backed out the scope, again taking great care to examine the length of the esophagus. Just above the GE junction, there was slight angulation of the distal esophagus down to the GE junction. 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 I suspect that her gastric bypass, combined with weight loss has distorted some normal anatomy in this area, allowing the gastric pouch to push slightly to the side creating slight angulation here. I do not believe that dilation would improve this, and I do worry that it would induce trauma to the esophageal hiatus, and potentially create diaphragmatic hernia. The mid, and upper portions of the esophagus were all totally normal-appearing. I did not see any evidence of strictures, webs, rings, or any other pathology. Next, we moved Adelina into the left lateral decubitus position, I began by performing an external anorectal exam.? Perineum and skin were normal, as was the anal verge.? There was no evidence of external hemorrhoids.? Next, I performed a digital rectal exam.? I did not appreciate any abnormal findings.? Next, I advanced a colonoscope into the rectal vault.? I performed retroflexion.? This appeared normal. Using insufflation, I then advanced the colonoscope beyond the rectal folds and into the sigmoid colon before advancing towards the cecum.? The quality of the prep was excellent.? There was extensive diverticulosis. The scope was noted to be in the cecum by identification of the ileocecal valve and appendiceal orifice.? I then began withdrawing the colonoscope using repeated irrigation as necessary for full evaluation of the colonic mucosa. ?Once the scope was withdrawn to the level of the rectum, great care was taken to examine portions of the rectal folds.? Finally, the scope was withdrawn and the patient was brought to the same-day surgery recovery unit as the anesthetic wore off. The findings and instructions were shared with the patient prior to discharge.
[2023-03-30 06:58] VITALS: BP 142/62; PULSE 55; RESP 18; TEMP 36.2; O2SAT 100
[2023-03-30] MEDS: Lactated Ringers 1,000 ML 80 ML IV (07:15)
--- NOTE | 2023-03-30 08:16 | ANES.PREOP_ITS ---
General Info Date of Service Date Performed: 03/30/23 Height: 5 ft Weight: 78.7 kg Body Mass Index (BMI): 33.8 Surgical Procedure: Operation Date: 03/30/23 08:20 Proposed Procedure Side Surgeon p Colonoscopy/Gastroscopy possible Dilation García Murry MD Meds Allergies and Home Medications Allergies Allergy/AdvReac Type Severity Reaction Status Date / Time dexamethasone [From Maxitrol] Allergy Severe Swelling/Ed Verified 03/29/23 14:10 odilon neomycin [From Maxitrol] Allergy Severe Swelling/Ed Verified 03/29/23 14:10 odilon polymyxin B [From Maxitrol] Allergy Severe Swelling/Ed Verified 03/29/23 14:10 odilon cefazolin [From Kefzol] Allergy Intermediate Rash Verified 03/29/23 14:10 quinine Allergy Intermediate Other (See Verified 03/29/23 14:10 Comment) Penicillins Allergy Mild Hives Verified 03/29/23 14:10 ciprofloxacin AdvReac Intermediate Tingling Verified 03/29/23 14:10 in hands and feet doxycycline AdvReac Intermediate esophageal Verified 03/29/23 14:10 erosion Home Medication Medication Instructions Recorded cholecalciferol (vitamin D3) 25 1,000 unit PO DAILY 07/24/18 mcg (1,000 unit) capsule (Vitamin D3) magnesium oxide 500 mg capsule 500 mg PO DAILY 07/24/18 docusate sodium 100 mg capsule 100 mg PO QDAY PRN 07/29/18 (Colace) multivitamin with iron (Daily 1 tab PO DAILY 06/02/19 Multiple Vitamins with Iron tablet) clobetasol 0.05 % topical ointment 1 applic topical .COMPLEX 6 weeks 11/15/21 #15 grams estradiol 10 mcg vaginal tablet 10 mcg vaginal .twice weekly #24 11/15/21 (Vagifem) tabs clindamycin HCl 300 mg capsule 600 mg PO ONCE 07/31/22 cyanocobalamin (vitamin B-12) 1,000 mcg PO DAILY 07/31/22 1,000 mcg capsule triamcinolone acetonide 0.1 % 1 applic topical BID PRN 07/31/22 topical cream atenolol 25 mg tablet 25 mg PO HS 03/12/23 hyaluronate sodium, stabilized 88 intra-articular 03/12/23 mg/4 mL intra-articular syringe (Monovisc) omeprazole 20 mg capsule,delayed 20 mg PO HS 03/29/23 release Current Visit Medications: Current Medications Generic Name Dose Route Start Last Admin Trade Name Freq PRN Reason Stop Dose Admin Hyoscyamine Sulfate 0.125 mg 03/29/23 20:43 Hyoscyamine 0.125 Mg Sl/Oral/Chew SL 04/28/23 20:42 DIRECTED PRN Ringer's Solution 1,000 mls @ 80 mls/hr 03/30/23 06:00 03/30/23 07:15 IV 03/30/23 23:59 80 mls/hr INFUSION MARY Administration IV Miscellaneous Supplies 1 each 03/30/23 06:00 Iv Access IV 03/30/23 23:59 DIRECTED MARY Ondansetron HCl 4 mg 03/29/23 20:43 Ondansetron 4 Mg/2 Ml Vial IVP 04/28/23 20:42 Q4H PRN PRN Nausea / Vomiting Sodium Chloride 0 ml 03/30/23 06:00 Normal Saline Flush 10 Ml Syr IV 03/30/23 23:59 PRN PRN Sodium Chloride 0 ml 03/30/23 06:00 Normal Saline 10 Ml Vial IJ 03/30/23 23:59 DIRECTED PRN Sterile Water 0 ml 03/30/23 06:00 Water,Injection,Sterile 10 Ml Vial IJ 03/30/23 23:59 DIRECTED PRN PFSH Active Problems Active Problems: Problem Status Onset Code Colon cancer screening Z12.11 Dysphagia R13.10 Adenomatous polyps D36.9 Sleep apnea G47.30 Diverticulosis K57.90 Varicose veins of both lower extremities I83.93 GERD (gastroesophageal reflux disease) K21.9 Nonalcoholic steatohepatitis K75.81 Hypertension I10 Status post cataract extraction and insertion of intraocular lens of right eye Z98.41, Z96.1 Myopia of right eye H52.11 Myopia of left eye H52.12 Nuclear sclerotic cataract of left eye H25.12 Posterior subcapsular age-related cataract of left eye H25.042 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 Vaginal atrophy N95.2 Lichen sclerosus L90.0 Medical History Medical History Arthritis History of esophageal stricture Hyperlipidemia Nuclear sclerotic cataract of right eye Posterior subcapsular age-related cataract, right eye Surgical History Surgical History History of colonoscopy (~2017) [facility] [place] Tobacco Smoking/Tobacco Use Status: Never Alcohol Alcohol Intake: never Substance Use Substance use: Never Substance use type: does not use Prental History History 2 Para Hx # Term Pregnancies Multiple births Hx # Pregnancies Ectopic pregnancies AB induced Hx Number of Living Children AB spontaneous Vital Signs and Lab Results Vital Signs Most Recent Vital Signs in EMR: Most Recent Vital Signs Temp Pulse Resp BP Pulse Ox 36.2 C L 55 L 18 142/62 H 100 03/30/23 06:58 03/30/23 06:58 03/30/23 06:58 03/30/23 06:58 03/30/23 06:58 Lab Results Blood Type / Crossmatch: No Data to Display Complete Blood Count: No Data to Display Complete Metabolic Panel: No Data to Display Liver Function Panel: No Data to Display Coagulation Panel: No Data to Display Cardiac Panel: No Data to Display Arterial Blood Gas: No Data to Display Venous Blood Gas: No Data to Display Pancreas Panel: No Data to Display Thyroid Panel: No Data to Display Infectious Disease: No Data to Display Blood Cultures: No Data to Display Toxicology Panel: No Data to Display Anesthesia Assessment and Plan Anesthesia History Personal History: No History of Anesthesia Complications Family History: No Family History of Anesthesia Complications Exercise Tolerance Exercise Tolerance: Metabolic Equivalents>4 Pertinent Negatives Pertinent Negatives: No Symptoms of GERD Cardiac & Pulmonary Exam Cardiac Exam: Normal S1/S2 Heart Sounds Pulmonary Exam: Clear Bilateral Breath Sounds Implantable Cardiac Device Does patient have a Pacemaker or an ICD?: No Airway Exam Known Difficult Airway: No Mallampati Class: 2 Mouth Opening: Normal (> 3cm) Thyromental Distance: Greater than 3 cm Neck Range of Motion: Full ROM Neck Circumference: Normal Teeth Condition: Normal Dentition ASA Classification ASA Score: ASA 2 Emergency Case?: No NPO Status NPO Status: NPO Clears >2 hours, Solids >8 hours Anesthesia Plan Resuscitation Status: Full Code Anesthesia Technique: General Anesthesia Airway Planned: Natural Airway Monitors Used: Standard Monitors
[2023-03-30 08:17] VITALS: BMI 33.8
--- NOTE | 2023-03-30 08:27 | ESO_PTH ---
PATIENT: Laura Hallman LOC: [facility] U#:[id number] AGE/SX: 77/F ROOM: RE03/30/[address]: García Murry MD : 1945 BED: DIS: 03/30/2023 SPEC #: [id number] RECD: 03/30/23 12:47 STATUS: GABRIELLE REMarianne #: [id number] GENET: 03/30/23 08:[address]: García Murry DEPT: Surgical Specimen RECD BY: Kimberly Palm ENTERED: 03/30/23 12:49 SP TYPE: Aishao JERRICA DR: Tonio Mckee Tissues: 1 - ESOPHAGUS BIOPSY Procedures: GROSS AND MICRO LEVEL 4 Comments: [id number]
[2023-03-30 09:01] VITALS: BP 98/67; PULSE 65; RESP 16; TEMP 36.2; O2SAT 98
--- NOTE | 2023-03-30 09:07 | W.ANESPOSTOP ---
Postoperative Evaluation Date, Time and Location Date Performed: 03/30/23 Time Performed: 09:07 Patient Location: Day Surgery Unit Vital Signs Most Recent Imported Vital Signs: Most Recent Vital Signs Temp Pulse Resp BP Pulse Ox 36.2 C L 55 L 18 142/62 H 100 03/30/23 06:58 03/30/23 06:58 03/30/23 06:58 03/30/23 06:58 03/30/23 06:58 Pain Score Most Recent Pain Score: Most Recent Pain Score Pain Level 0 03/30/23 06:58 Assessment Mental Status: Awake (Alert & Oriented to Patient Baseline) Airway and Respiratory Function: Patent airway with normal (patient baseline) respiratory exam Cardiovascular Function: Hemodynamically Stable Hydration Status: Adequately Hydrated Nausea & Vomiting: No Nausea or Vomiting Pain: Pt. Denies Any Pain Peripheral Nerve Block: Patient did not receive a nerve block
[2023-03-30 09:25] VITALS: BP 125/59; PULSE 64; RESP 16; TEMP 36.1; O2SAT 100
== END 2023-03-30 09:50 | disposition home or self-care (01) ==
PROVIDERS: PCP Family Medicine; Visit Provider Surgery
PROC: (CPT 43239; principal; 2023-03-30 08:15)
DX: Z12.11 Encounter for screening for malignant neoplasm of colon (principal); R13.10 Dysphagia, unspecified; K57.30 Diverticulosis of large intestine without perforation or abscess without bleeding
CPT/HCPCS: 43239; G0121; 88305; J2001

== ENCOUNTER 2023-07-17 18:23 | Outpatient (REF) | payer MEDICARE, SELFPAY ==
[2023-07-17 21:04] LABS: HCT 39.6 % (36.0-46.0); HGB 13.4 g/dL (11.2-15.7); MCH 31.6 pg (27.0-33.0); MCHC 33.8 % (32.0-36.0); MCV 93 fL (80-95); MPV 10.5 fL (8.0-11.0); Platelet Count 229 10^3/uL (130-400); RBC 4.24 10^6/uL (3.93-5.22); RDW 12.4 % (11.7-14.6); RDW-SD 42.8 fL; WBC 5.85 10^3/uL (4.4-10.8)
[2023-07-17 21:21] LABS: ALT 22 U/L (14-59); AST 23 U/L (15-37); Albumin 3.5 g/dL (3.4-5.0); Alkaline Phosphatase 95 U/L (46-116); Anion Gap 6.3 mmol/L (3-11); BUN 19 mg/dL (7-18); Bilirubin, Total 0.2 mg/dL (0.2-1.0); CO2 29.7 mmol/L (21.0-32.0); CREATININE 0.5 mg/dL (0.55-1.02); Chloride 104 mmol/L (98-107); Estimated GFR 97.14 (mL/min/1.73m2); Glucose 102 mg/dL (74-106); Sodium 140 mmol/L (136-145); Total Protein 7.2 g/dL (6.4-8.2)
== END 2023-07-17 18:24 | disposition home or self-care (01) ==
LOC: NCHCN 18:23
PROVIDERS: PCP Family Medicine; Visit Provider Family Medicine
DX: I10 Essential (primary) hypertension (principal); M17.11 Unilateral primary osteoarthritis, right knee
CPT/HCPCS: 80053; 85027

== ENCOUNTER → 2023-07-31 00:16 | Outpatient (CLI) | payer MEDICARE, SELFPAY ==
--- NOTE | 2023-07-31 | DI.MAMMO_ITS ---
Exam(s) MAMMO SCREENING EXAM: MAMMO SCREENING CLINICAL HISTORY: SCREENING, Z12.31. TECHNIQUE: Bilateral full field digital CC and MLO mammographic images were obtained with 3D tomosyn thesis and utilizing computer aided detection (CAD). COMPARISON: Prior mammograms were reviewed. FINDINGS: There has been no significant change in the appearance and distribution of the fibroglandular tissue. There are no new spiculated masses nor malignant appearing microcalcification groups. There is no significant architectural distortion nor skin thickening-retraction. IMPRESSION: No radiographic evidence of malignancy. BI-RADS Category 1 - Negative Breast Density - Category A - Almost entirely fatty Breast density Category C or D implies that the patient has dense breast tissue. Dense breast tissue can make it harder to find cancer on a mammogram. Dense breast tissue is also associated with an incr eased risk of breast cancer. This information about the result of the mammogram report was provided to the patient to raise their awareness. Use this report when you speak with the patient about their risks for breast cancer, which includes their family history. At that time, you may recommend additional screening tests (Ultrasoun d or MRI) as these tests may add significant information. A negative radiographic report should not delay biopsy if a dominant or clinically suspicious mass is present. Up to ten percent of cancers are not identified on mammography. A negative report may reinforce clinical impression. Adenosis and dense breasts may obscure an underlying neoplasm. False positive reports average 6 to 10%. Patient will receive a letter notifying them of these results.
== END ==
PROVIDERS: PCP Family Medicine; Visit Provider Family Medicine
DX: Z12.31 Encounter for screening mammogram for malignant neoplasm of breast (principal); R92.313 Mammographic fatty tissue density, bilateral breasts
CPT/HCPCS: 77063; 77067

== ENCOUNTER 2023-11-30 11:00 | Day surgery (SDC) | payer MEDICARE, SELFPAY ==
[2023-11-30 11:29] VITALS: BP 157/79; PULSE 67; RESP 18; TEMP 36.5; O2SAT 100
[2023-11-30 12:21] VITALS: BMI 33.3
--- NOTE | 2023-11-30 12:21 | W.ANESPRE ---
General Info Date of Service Date Performed: 11/30/23 Height: 5 ft Weight: 77.3 kg Body Mass Index (BMI): 33.3 Surgical Procedure: Operation Date: 11/30/23 12:55 Proposed Procedure Side Surgeon p Cataract Extraction with IOL Implant Left Devan Hernandez MD Meds Allergies and Home Medications Allergies Allergy/AdvReac Type Severity Reaction Status Date / Time dexamethasone [From Maxitrol] Allergy Severe Swelling/Ed Verified 11/30/23 11:26 odilon neomycin [From Maxitrol] Allergy Severe Swelling/Ed Verified 11/30/23 11:26 odilon polymyxin B [From Maxitrol] Allergy Severe Swelling/Ed Verified 11/30/23 11:26 odilon cefazolin [From Kefzol] Allergy Intermediate Rash Verified 11/30/23 11:26 quinine Allergy Intermediate Other (See Verified 11/30/23 11:26 Comment) Penicillins Allergy Mild Hives Verified 11/30/23 11:26 ciprofloxacin AdvReac Intermediate Tingling Verified 11/30/23 11:26 in hands and feet doxycycline AdvReac Intermediate esophageal Verified 11/30/23 11:26 erosion Home Medication Medication Instructions Recorded cholecalciferol (vitamin D3) 25 1,000 unit PO DAILY 07/24/18 mcg (1,000 unit) capsule (Vitamin D3) magnesium oxide 500 mg capsule 500 mg PO DAILY 07/24/18 docusate sodium 100 mg capsule 100 mg PO QDAY PRN 07/29/18 (Colace) multivitamin with iron (Daily 1 tab PO DAILY 06/02/19 Multiple Vitamins with Iron tablet) clobetasol 0.05 % topical ointment 1 applic topical .COMPLEX 6 weeks 11/15/21 #15 grams estradiol 10 mcg vaginal tablet 10 mcg vaginal .twice weekly #24 11/15/21 (Vagifem) tabs clindamycin HCl 300 mg capsule 600 mg PO ONCE 07/31/22 cyanocobalamin (vitamin B-12) 1,000 mcg PO DAILY 07/31/22 1,000 mcg capsule triamcinolone acetonide 0.1 % 1 applic topical BID PRN 07/31/22 topical cream atenolol 25 mg tablet 25 mg PO HS 03/12/23 omeprazole 20 mg capsule,delayed 20 mg PO HS 03/29/23 release Current Visit Medications: Current Medications Generic Name Dose Route Start Last Admin Trade Name Freq PRN Reason Stop Dose Admin Acetaminophen 1,000 mg 12/01/23 06:00 Acetaminophen 500 Mg Tab PO 12/31/23 05:59 Q4H PRN PRN Balanced Salt Solution 500 ml 11/30/23 11:00 Balanced Salt Soln.-Plus 500 Ml Bag OP 12/30/23 10:59 DIRECTED MARY Miscellaneous Medication 0 ml 11/30/23 11:00 Prednisolone 1%, Moxifloxacin 0.5%, Bromfenac 0.09% 5ml Btl OS 12/30/23 10:59 DIRECTED MARY Miscellaneous Medication 0 ml 11/30/23 11:00 11/30/23 12:00 Tropicam./Phenyleph. (1/2.5%) 10 Ml Btl OS 12/30/23 10:59 1 drp DIRECTED MARY Administration Tetracaine HCl 0 ml 11/30/23 11:00 Tetracaine 0.5% 4 Ml Btl OS 12/30/23 10:59 DIRECTED MARY PFSH Active Problems Active Problems: Problem Status Onset Code Nuclear age-related cataract, left eye H25.12 Colon cancer screening Z12.11 Dysphagia R13.10 Adenomatous polyps D36.9 Sleep apnea G47.30 Diverticulosis K57.90 Varicose veins of both lower extremities I83.93 GERD (gastroesophageal reflux disease) K21.9 Nonalcoholic steatohepatitis K75.81 Hypertension I10 Status post cataract extraction and insertion of intraocular lens of right eye Z98.41, Z96.1 Myopia of right eye H52.11 Myopia of left eye H52.12 Nuclear sclerotic cataract of left eye H25.12 Posterior subcapsular age-related cataract of left eye H25.042 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 Vaginal atrophy N95.2 Lichen sclerosus L90.0 Medical History Medical History (Updated 11/30/23 @ 11:36 by Jesseina Padilla RN) Mitral valve prolapse reported by pt 11/30/23 Intestinal anastomosis present Cobalamin deficiency Rosacea Osteoarthritis History of esophageal stricture Arthritis Hyperlipidemia Posterior subcapsular age-related cataract, right eye Nuclear sclerotic cataract of right eye Surgical History Surgical History Hx of shoulder replacement Hx of total knee replacement History of esophagogastroduodenoscopy (~03/2023) History of colonoscopy (~03/2023) [facility] [place] Tobacco Smoking/Tobacco Use Status: Never Alcohol Alcohol Intake: never Substance Use Substance use: Never Substance use type: does not use Prental History History 2 Para Hx # Term Pregnancies Multiple births Hx # Pregnancies Ectopic pregnancies AB induced Hx Number of Living Children AB spontaneous Vital Signs and Lab Results Vital Signs Most Recent Vital Signs in EMR: Most Recent Vital Signs Temp Pulse Resp BP Pulse Ox 36.5 C 67 18 157/79 H 100 11/30/23 11:29 11/30/23 11:29 11/30/23 11:29 11/30/23 11:29 11/30/23 11:29 Lab Results Blood Type / Crossmatch: No Data to Display Complete Blood Count: No Data to Display Complete Metabolic Panel: No Data to Display Liver Function Panel: No Data to Display Coagulation Panel: No Data to Display Cardiac Panel: No Data to Display Arterial Blood Gas: No Data to Display Venous Blood Gas: No Data to Display Pancreas Panel: No Data to Display Thyroid Panel: No Data to Display Infectious Disease: No Data to Display Blood Cultures: No Data to Display Toxicology Panel: No Data to Display Anesthesia Assessment and Plan Anesthesia History Personal History: No History of Anesthesia Complications Family History: No Family History of Anesthesia Complications Exercise Tolerance Exercise Tolerance: Metabolic Equivalents>4 Pertinent Negatives Pertinent Negatives: No Symptoms of GERD Cardiac & Pulmonary Exam Cardiac Exam: Normal S1/S2 Heart Sounds Pulmonary Exam: Clear Bilateral Breath Sounds Implantable Cardiac Device Does patient have a Pacemaker or an ICD?: No Airway Exam Known Difficult Airway: No Mallampati Class: 2 Mouth Opening: Normal (> 3cm) Thyromental Distance: Greater than 3 cm Neck Range of Motion: Full ROM Neck Circumference: Normal Teeth Condition: Normal Dentition ASA Classification ASA Score: ASA 2 Emergency Case?: No NPO Status NPO Status: NPO Clears >2 hours, Solids >8 hours Anesthesia Plan Resuscitation Status: Full Code Anesthesia Technique: MAC Anesthesia Airway Planned: Natural Airway Monitors Used: Standard Monitors
[2023-11-30] MEDS: Balanced Salt Soln.-PLUS 500 ML BAG OP (12:56)
[2023-11-30] MEDS: Lidocaine 1% Pres-Free 5 ML VIAL (12:57)
[2023-11-30] MEDS: Duovisc Viscoelastic System EACH 1 EACH (12:58)
[2023-11-30] MEDS: Povidone-Iodine Ophth 30 ML BTL (12:59)
[2023-11-30 13:14] VITALS: BP 142/73; PULSE 64; RESP 20; TEMP 36.6; O2SAT 99
--- NOTE | 2023-11-30 13:14 | W.PM.DSUDISC ---
Date of service: 11/30/23 Time of Service: 13:14 Discharge Plan Disposition Patient Disposition: Home Discharge Details Attending Provider: Devan Hernandez Primary Care Provider: Tonio Mckee Home Meds and New Rx's Prescriptions: No Action atenolol 25 mg tablet 25 mg PO HS multivitamin with iron [Daily Multiple Vitamins/Iron] Tablet 1 tab PO DAILY estradiol [Vagifem] 10 mcg tablet 10 mcg VG .twice weekly Qty: 24 4RF Rx Instructions: use one tab in vagina twice weekly clobetasol 0.05 % ointment 1 applic TP .COMPLEX 42 Days Qty: 15 2RF Rx Instructions: 1 applic TP at bedtime once a week clindamycin HCl 300 mg capsule 600 mg PO ONCE Rx Instructions: take 2 caps 1 hour prior to procedure cyanocobalamin (vitamin B-12) 1,000 mcg capsule 1,000 mcg PO DAILY triamcinolone acetonide 0.1 % cream 1 applic topical BID PRN magnesium oxide 500 mg Capsule 500 mg PO DAILY cholecalciferol (vitamin D3) [Vitamin D3] 1,000 unit Capsule 1,000 unit PO DAILY docusate sodium [Colace] 100 mg Capsule 100 mg PO QDAY PRN omeprazole 20 mg capsule,delayed release(DR/EC) 20 mg PO HS Patient Comments: TAKE ONE CAPSULE BY MOUTH EVERY DAY Discharge Instructions Stand Alone Forms: [facility] Post-Op Cataract, Dena Gleason ([facility]) Discharge Orders Discharge Orders: Discharge Order (Routine); Ordered 11/30/23 Ordered By: Devan Hernandez DS: Diagnosis Discharge Diagnosis (1) Nuclear age-related cataract, left eye: Status: Resolved
--- NOTE | 2023-11-30 13:14 | W.PM.OP ---
Date of service: 11/30/23 Time of Service: 13:14 Operative Note Operative Note DATE OF PROCEDURE: 11/30/23 PRE-OP DIAGNOSIS: Nuclear/posterior subcapsular cataract, left eye POST-OP DIAGNOSIS: same PROCEDURE: Cataract extraction using phacoemulsification with intraocular lens implant, left eye SURGEON: Devan Hernandez ANESTHESIA TYPE: Local By Surgeon and MAC Refer to Anesthesia Record PATHOLOGY: none sent COMPLICATIONS: None Patient was transported to: same day Patient's condition: stable Implants: Stephen Clareon [id number] Indications: Progressive decreased vision due to cataract, left eye Procedure Description: CATARACT SURGERY OPERATIVE REPORT PREOPERATIVE DIAGNOSIS: Nuclear/posterior subcapsular cataract, left eye POSTOPERATIVE DIAGNOSIS: Same OPERATION: Cataract extraction using phacoemulsification with posterior chamber intraocular lens implant, left eye. IOL: IOL Night Cleaner/Model: Stephen Clareon [id number] IOL Power: + 14.5 diopters IOL Serial Number: [id number] Optic Diameter: 6.0mm Haptic/Overall Diameter: 13.0mm PHACO INFO: StephenSatellogicurion Vision System with OZil and Active Fluidics Cumulative Dispersed Energy (CDE): 10.09 seconds SURGEON: Devan Hernandez MD, HYUN ANESTHESIA: Monitored Anesthesia Care (MAC), with local sub-tenon's anesthetic infiltration COMPLICATIONS: None SPECIMENS: None INDICATIONS FOR PROCEDURE: The patient is a 78-year-old lady with history of diminished visual acuity in both eyes secondary to the development of bilateral cataract surgery. She has already undergone cataract surgery in the right eye approximately 7 years ago. She now presents for cataract surgery in the left eye. She has a history of myopia and desires to remain myopic in the left eye. Postoperative refractive target of -2.75 diopters. See office notes for detailed information. PROCEDURE: The correct surgical eye was identified and marked as the left eye and the pupil was dilated in the preoperative area using mydriatics and cycloplegics. The dilated pupil size was 8.0 mm. The patient elected to proceed without oral sedation. The patient was brought to the operating room where cardiopulmonary monitoring was instituted and surgical time-out was performed, confirming the correct operative eye and IOL power. Topical anesthesia was administered and ophthalmic povidone-iodine 5% was instilled into the conjunctival fornices. The jeffrey-ocular area was prepped with Betadine 10% solution and draped in the usual sterile fashion for intraocular surgery, including an aperture drape. A Tegaderm transparent film dressing was cut in half and used to cover the lashes and lid margins. Care was taken to sequester the lashes and lid margins under the Tegaderm dressing. A lid speculum was placed between the lids of the operative eye and the Stephen LuxOR Revalia operating microscope was maneuvered into position. Ro scissors were then used to make a conjunctival buttonhole approximately 6mm posterior to the limbus in the inferonasal quadrant. Blunt dissection was carried out to expose bare sclera, and a blunt-tipped sub-tenon?s anesthesia cannula was introduced and passed posteriorly along the globe where non-preserved plain lidocaine was injected into posterior sub-Tenon?s space. A sideport knife was used to make a paracentesis port. Intraocular phenylephrine/lidocaine was injected into the anterior chamber. The anterior chamber was then filled with viscoelastic. A keratome knife was used construct a two-plane clear corneal tunnel extending 2.0mm into clear cornea. A flap was raised on the anterior capsule and capsulorhexis forceps were used to complete a continuous curvilinear capsulorhexis of 5.0 mm. Balanced salt solution was then used to perform cortical cleaving hydrodissection and nuclear hydrodelineation until the lens could be freely rotated within the capsular bag. The lens nucleus was then disassembled and removed within the capsular bag and iris plane using phacoemulsification. Residual cortical material was removed using the irrigation/aspiration handpiece. The posterior capsule was carefully polished to remove as much residual lens epithelial cells as safely possible. The capsular bag was then inflated and the anterior chamber deepened with viscoelastic. The lens implant described above was inserted into the capsular bag using the Stephen Autonome Injector. A Kuglen hook was used to dial the IOL into position. Residual viscoelastic was then removed first from posterior to the IOL, then from the anterior chamber using the I/A handpiece. The lens implant was noted to center nicely within the capsular bag. The incisions were stromally hydrated, and the anterior chamber was reformed using BSS. Then 0.5cc of moxifloxacin 1.0mg/ml were injected into the capsular bag and anterior chamber. The incisions were checked with a Weck spear and found to be secure. Several drops of ophthalmic povidone-iodine 5% were then applied to the eye followed by two drops of combination steroid/NSAID/antibiotic solution. The drapes were removed and a clear plastic protective eye shield was placed over the eye. The patient was then returned to Same Day Surgery in stable condition.
--- NOTE | 2023-11-30 14:06 | W.ANESPOSTOP ---
Postoperative Evaluation Date, Time and Location Date Performed: 11/30/23 Time Performed: 13:18 Patient Location: Day Surgery Unit Vital Signs Most Recent Imported Vital Signs: Most Recent Vital Signs Temp Pulse Resp BP Pulse Ox 36.6 C 64 20 142/73 H 99 11/30/23 13:14 11/30/23 13:14 11/30/23 13:14 11/30/23 13:14 11/30/23 13:14 Pain Score Most Recent Pain Score: Most Recent Pain Score Pain Level 0 11/30/23 13:14 Assessment Mental Status: Awake (Alert & Oriented to Patient Baseline) Airway and Respiratory Function: Patent airway with normal (patient baseline) respiratory exam Cardiovascular Function: Hemodynamically Stable Hydration Status: Adequately Hydrated Nausea & Vomiting: No Nausea or Vomiting Pain: Pt. Denies Any Pain Peripheral Nerve Block: Patient did not receive a nerve block
== END 2023-11-30 13:40 | disposition home or self-care (01) ==
LOC: SUR 11:01
PROVIDERS: PCP Family Medicine; Visit Provider Ophthalmology
PROC: (CPT 66984; principal; 2023-11-30 12:45)
DX: H25.12 Age-related nuclear cataract, left eye (principal); Z98.41 Cataract extraction status, right eye; K21.9 Gastro-esophageal reflux disease without esophagitis; I10 Essential (primary) hypertension; G47.30 Sleep apnea, unspecified
CPT/HCPCS: 66984; 00123; V2632; J2003

== ENCOUNTER 2024-01-25 15:25 | Outpatient (REF) | payer MEDICARE, SELFPAY | END 2024-01-25 15:26 | disposition home or self-care (01) | LOC: NCHCN 15:25 | PROVIDERS: PCP Family Medicine; Visit Provider Physician Assistant Medical | DX: J02.9 Acute pharyngitis, unspecified (principal) | CPT/HCPCS: 87070 ==

== ENCOUNTER → 2024-09-01 13:23 | Outpatient (BNVA) | payer MEDICARE, SELFPAY | PROVIDERS: PCP Family Medicine; Referring Provider Family Medicine; Visit Provider Podiatrist | DX: B07.0 Plantar wart (principal); L84 Corns and callosities; M79.671 Pain in right foot; M79.672 Pain in left foot | CPT/HCPCS: 11305; 99213 ==

== ENCOUNTER → 2024-10-13 14:17 | Outpatient (BNVA) | payer MEDICARE, SELFPAY | PROVIDERS: PCP Family Medicine; Referring Provider Family Medicine; Visit Provider Podiatrist | DX: B07.0 Plantar wart (principal); L84 Corns and callosities; M79.671 Pain in right foot; M79.672 Pain in left foot | CPT/HCPCS: 99213 ==

== ENCOUNTER → 2024-12-15 08:17 | Outpatient (BNVA) | payer MEDICARE, SELFPAY | PROVIDERS: PCP Family Medicine; Referring Provider Nurse Practitioner Acute Care; Visit Provider Psychiatry & Neurology Neurology | DX: G57.12 Meralgia paresthetica, left lower limb (principal) | CPT/HCPCS: 99215 ==

== ENCOUNTER 2024-12-23 18:23 | Outpatient (REF) | payer MEDICARE, SELFPAY ==
[2024-12-23 21:03] LABS: Abs Immature Grans 0.01 10^3/uL (0.0-0.06); Absolute Basophil Count 0.03 10^3/uL (0.0-0.2); Absolute Eosinophil Count 0.22 10^3/uL (0.0-0.7); Absolute Lymphocyte Count 1.38 10^3/uL (1.2-3.4); Absolute Monocyte Count 0.49 10^3/uL (0.1-0.8); Absolute Neutrophil Count 4.69 10^3/uL (1.2-6.7); Basophils % 0.4 %; Eosinophils % 3.2 %; HGB 13.1 g/dL (11.2-15.7); Immature Grans % 0.1 %; Lymphocytes % 20.2 %; MCH 31.2 pg (27.0-33.0); MCHC 33.6 % (32.0-36.0); MCV 93 fL (80-95); MPV 9.8 fL (8.0-11.0); Monocytes % 7.2 %; Neutrophils % 68.9 %; Platelet Count 228 10^3/uL (130-400); RDW 12.2 % (11.7-14.6); RDW-SD 41.8 fL; WBC 6.82 10^3/uL (4.4-10.8)
[2024-12-23 21:10] LABS: ALT 21 U/L (14-59); AST 18 U/L (15-37); Albumin 3.7 g/dL (3.4-5.0); Alkaline Phosphatase 108 U/L (46-116); Anion Gap 6.7 mmol/L (3-11); BUN 14 mg/dL (7-18); Bilirubin, Total 0.3 mg/dL (0.2-1.0); CO2 34.3 mmol/L (21.0-32.0); CREATININE 0.6 mg/dL (0.55-1.02); Calcium 9.9 mg/dL (8.5-10.1); Chloride 103 mmol/L (98-107); Estimated GFR 92.39 (mL/min/1.73m2); Glucose 111 mg/dL (74-106); Potassium 3.8 mmol/L (3.5-5.1); Sodium 144 mmol/L (136-145); Total Protein 6.9 g/dL (6.4-8.2)
== END 2024-12-23 18:24 | disposition home or self-care (01) ==
LOC: NCHCN 18:23
PROVIDERS: PCP Family Medicine; Visit Provider Family Medicine
DX: K57.92 Diverticulitis of intestine, part unspecified, without perforation or abscess without bleeding (principal)
CPT/HCPCS: 80053; 85025

== ENCOUNTER 2024-12-24 11:43 | Outpatient (CLI) | payer MEDICARE, SELFPAY ==
--- NOTE | 2024-12-24 | DI.CT_ITS ---
Exam(s) CT ABDOMEN PELVIS W EXAM: CT ABDOMEN PELVIS W CLINICAL HISTORY: DIVERTICULITIS W/O PERFORATION/ABSCESS/BLEEDING, K57.92 TECHNIQUE: Imaging Protocol: Axial computed tomography images with coronal and sagittal reformatted images were created and reviewed. CONTRAST MATERIAL: Intravenous: Omnipaque 350 Contrast volume:75 mL Oral: Yes COMPARISON: CT ABD PELVIS WITH CONTRAST from 08/03/2017 FINDINGS: ABDOMEN: Lung Bases: No acute abnormality. Liver: Normal density. Stable areas of hypodensity in the liver which may represent small cysts. No suspicious or new hepatic lesions are seen. Portal, Superior Mesenteric, and Splenic Veins: Unremarkable. Gallbladder and Biliary Tract: Status post cholecystectomy. Stable appearance of the extrahepatic bi le duct. Pancreas: Normal density, no abnormal calcifications or inflammatory process. Spleen: Normal. Adrenals: No masses seen. Kidneys: Normal size, contour and axis. There are bilateral nonobstructing renal calculi. No masses seen. Abdominal Aorta: Abdominal portion non-dilated. Atherosclerotic calcification is present. Bowel: There is diverticulosis in the colon. There is bowel wall thickening seen in the distal desce nding colon. Pericolonic inflammatory changes are seen. The findings are consistent with acute dive rticulitis. There is no evidence of bowel obstruction. Postsurgical changes are seen in the stomach and the small bowel in the left abdomen. Appendix is unremarkable. Peritoneal Cavity: No ascites, collection or mesenteric inflammatory response. No free air. Lymph Nodes: Within normal limits. Bones: Within normal limits for the patient's age. Soft Tissues: Unremarkable. PELVIS: Bladder: Symmetric distention, no gross wall thickening. Reproductive Organs: Unremarkable as visualized. Lymph Nodes: Within normal limits. Bones: Within normal limits for the patient's age. IMPRESSION: Acute diverticulitis involving the descending colon. No abscess or pneumoperitoneum. RADIATION DOSE DELIVERED: 554.98mGy.cm Total DLP DATA REPOSITORY: All CT scans at this facility are submitted to the National Radiology Data Registry (NRDR) Dose Index Registry (DIR) with the [employer] ([employer]). RADIATION OPTIMIZATION: All CT scans at this facility use at least one of these dose optimization te chniques: automated exposure control; mA and/or kV adjustment per patient size (includes targeted exa ms where dose is matched to clinical indication); or iterative reconstruction.
[2024-12-24] MEDS: Barium Sulfate 2% W/V-Berry Smoothie 450 ML BTL PO (13:06)
[2024-12-24] MEDS: Barium Sulfate 2% W/V-Creamy Vanilla Smoothie 450 ML BTL PO (13:06)
[2024-12-24] MEDS: Omnipaque 350 MG/ML 100 ML BTL IJ (14:55)
[2024-12-24] MEDS: Normal Saline - Diluent 50 ML VIAL IJ (14:55)
== END 2024-12-24 12:03 ==
LOC: DI 11:49
PROVIDERS: PCP Family Medicine; Visit Provider Family Medicine
DX: K57.92 Diverticulitis of intestine, part unspecified, without perforation or abscess without bleeding (principal)
CPT/HCPCS: 74177; J3490

== ENCOUNTER 2025-02-02 02:51 | Outpatient (CLI) | payer MEDICARE, SELFPAY ==
--- NOTE | 2025-02-02 07:00 | DI.MAMMO_ITS ---
Exam(s) MAMMO SCREENING EXAM: MAMMO SCREENING CLINICAL HISTORY: screening,z12.31 TECHNIQUE: Bilateral full field digital CC and MLO mammographic images were obtained with 3D tomosyn thesis and utilizing computer aided detection (CAD). COMPARISON: Available for comparison. FINDINGS: Masses/Architectural Distortion: No suspicious masses or areas of architectural distortion are presen t. Microcalcifications: No suspicious pleomorphic-type are seen. Skin Thickening/Nipple Retraction: None. IMPRESSION: 1. No significant interval change with no specific features of malignancy noted. 2. Unless there is more urgent need, screening mammography is recommended, as per [employer] guidelines. BI-RADS Category 1 - Negative Breast Density - Category A - The breast are almost entirely fatty. Breast density Category C or D implies that the patient has dense breast tissue. Dense breast tissue can make it harder to find cancer on a mammogram. Dense breast tissue is also associated with an incr eased risk of breast cancer. This information about the result of the mammogram report was provided to the patient to raise their awareness. Use this report when you speak with the patient about their risks for breast cancer, which includes their family history. At that time, you may recommend additional screening tests (Ultrasoun d or MRI) as these tests may add significant information. A negative radiographic report should not delay biopsy if a dominant or clinically suspicious mass is present. Up to ten percent of cancers are not identified on mammography. A negative report may reinforce clinical impression. Adenosis and dense breasts may obscure an underlying neoplasm. False positive reports average 6 to 10%. Patient will receive a letter notifying them of these results.
== END 2025-02-02 03:11 ==
LOC: DI 02:51
PROVIDERS: PCP Family Medicine; Visit Provider Obstetrics & Gynecology
DX: Z12.31 Encounter for screening mammogram for malignant neoplasm of breast (principal); R92.313 Mammographic fatty tissue density, bilateral breasts
CPT/HCPCS: 77063; 77067